=== PATIENT | male | born 1955 | race Caucasian/White ===

== ENCOUNTER 2017-03-17 07:50 | Day surgery (SDC) | payer BC ==
[2017-03-17] MEDS ORDERED: Lactated Ringers 1,000 ML IV SCH (08:50)
[2017-03-17] MEDS ORDERED: Glycopyrrolate 0.2 MG/ML 2 ML SDV IVPUSH ONE (09:15)
[2017-03-17] MEDS ORDERED: fentaNYL 100 MCG/2 ML SDV ONE (09:59)
[2017-03-17] MEDS ORDERED: Propofol 200 MG/20 ML SDV ONE (09:59)
[2017-03-17] MEDS ORDERED: Midazolam 1 MG/ML 2 ML SDV ONE (09:59)
[2017-03-17 11:47] VITALS: BP 125/71
--- NOTE | 2017-03-21 14:44 | OR ---
DATE OF PROCEDURE: 03/17/2017 PREOPERATIVE DIAGNOSIS: Weight regained status post Jessica-en-Y gastric bypass. POSTOPERATIVE DIAGNOSES: Weight regained status post Jessica-en-Y gastric bypass associated with extremely enlarged gastric pouch and gastrojejunostomy and associated gastrogastric fistula. OPERATIVE PROCEDURE: Upper GI endoscopy with biopsies of antrum for CLOtest. ANESTHESIA: IV sedation. INDICATION FOR PROCEDURE: This is a 61-year-old male presenting with a history of Jessica-en-Y gastric bypass done in 2000. His preoperative weight at that time was 514 pounds, it did get down to 270 pounds, but over the last years, he has had rapid weight regain, presently he is weighing 351 pounds. Plan is to proceed with upper GI endoscopy to investigate the gastric bypass anatomy. Potential risks including bleeding and perforation were discussed, and the patient wishes to proceed. DETAILS OF PROCEDURE: The patient was taken to the operating room and placed in a left lateral decubitus position. IV sedation was administered, after which the upper GI endoscope was passed orally through the length of the esophagus into the gastric pouch, from there through the gastrojejunostomy roughly 20 cm into the Jessica limb. Findings included normal esophagus and EG junction area. As one passed in the gastric pouch, this was noted to be strikingly large and was measured at 11 cm from the gastroesophageal junction mucosal line as a spherical configuration, so this was quite large, roughly the size of a softball. The gastrojejunostomy was also widely patent. Additionally, the patient had a gastrogastric fistula which was large enough to have the gastroscope passed through the fistula into the stomach. The remainder of the stomach and proximal duodenum were unremarkable. At this point, biopsies were obtained from the antrum and sent for CLOtest for H. pylori. Minimal bleeding from the biopsy sites was seen and the procedure then concluded. The patient was taken to the recovery room in satisfactory condition. The patient would appear to be a candidate for re-visional procedure, so the re-visional procedure would need to be an open approach, nonetheless the patient would likely do quite well. The revision would involve re-doing the upper area in terms of creating a much smaller gastric pouch eliminating gastric fistula and then recreating more distal Jessica-en-Y anatomy. [facility] will be contacted regarding prior authorization for this procedure. Julian Velazquez MD /[id number]
== END 2017-03-17 11:49 | disposition home or self-care (01) ==
LOC: JP.SDS 07:50
PROVIDERS: ATTEND Surgery
DX: K95.89 Other complications of other bariatric procedure (principal); R63.5 Abnormal weight gain; Z68.42 Body mass index [BMI] 45.0-49.9, adult; E03.9 Hypothyroidism, unspecified
CPT/HCPCS: 43239; 87081; J2250; J2704; J3010; J7120; J3490

== ENCOUNTER 2017-06-03 07:30 | Inpatient (IN) | payer BC ==
[~2017-06-03 07:30] MED LIST: Scopolamine 1.5 MG Transdermal Patch TOP SCH
[2017-06-03] MEDS ORDERED: Dextrose 5%-Lactated Ringers 1,000 ML IV SCH (08:30)
[2017-06-03] MEDS ORDERED: Gabapentin 300 MG Cap PO ONE (08:30)
[2017-06-03] MEDS ORDERED: Acetaminophen 500 MG Tab PO ONE (08:30)
[2017-06-03] MEDS ORDERED: Celecoxib 200 MG Cap PO ONE (08:30)
[2017-06-03] MEDS ORDERED: Scopolamine 1.5 MG Transdermal Patch TOP SCH (08:30)
[2017-06-03] MEDS ORDERED: Lidocaine 2% 100 MG/5 ML Syringe IVPUSH SCH (10:30)
[2017-06-03] MEDS ORDERED: Ketamine 500 MG/5 ML MDV IV SCH (10:30)
[2017-06-03] MEDS ORDERED: cefOXitin 2 GM in Sodium Chloride 0.9% 50 ML IV ONE (10:30)
[2017-06-03] MEDS ORDERED: Ropivacaine 60 ML, Dexamethasone 8 MG, EPINEPHrine 0.4 MG, Sodium Chloride 0.9% 17.6 ML NERVRT SCH ×4 (10:30)
[2017-06-03] MEDS ORDERED: Glycopyrrolate 0.2 MG/ML 5 ML MDV ONE (11:04)
[2017-06-03] MEDS ORDERED: Ondansetron 4 MG/2 ML SDV ONE (11:04)
[2017-06-03] MEDS ORDERED: Propofol 200 MG/20 ML SDV ONE (11:04)
[2017-06-03] MEDS ORDERED: Succinylcholine 200 MG/10 ML MDV ONE (11:04)
[2017-06-03] MEDS ORDERED: Neostigmine Methylsulfate 1 MG/ML 5 ML Syringe ONE (11:04)
[2017-06-03] MEDS ORDERED: Rocuronium 50 MG/5 ML Vial ONE ×2 (11:04→13:48)
[2017-06-03] MEDS ORDERED: Dexamethasone 4 MG/ML SDV ONE (11:04)
[2017-06-03] MEDS ORDERED: Lidocaine 0.4%/D5W 2 GM/500 ML BAG IV SCH (12:00)
[2017-06-03] MEDS: Meropenem 500 MG SDV ONE ×2 (13:58→15:03)
[2017-06-03] MEDS ORDERED: Lactated Ringers 1,000 ML ONE (14:14)
[2017-06-03] MEDS ORDERED: fentaNYL 100 MCG/2 ML SDV ONE (15:41)
[2017-06-03] MEDS ORDERED: hydrOXYzine HCl 100 MG/2 ML SDV IM ONE (16:03)
[2017-06-03] MEDS: hydrOXYzine HCl 100 MG/2 ML SDV IM PRN ×2 (17:21→21:32)
[2017-06-03] MEDS: Acetaminophen Soln 650 MG/20.3 ML UD Cup PO SCH ×2 (17:42→23:34)
[2017-06-03] MEDS: Lidocaine 0.4%/D5W 2 GM/500 ML BAG IV SCH (17:43)
[2017-06-03] MEDS: cefOXitin 2 GM in Sodium Chloride 0.9% 50 ML IV SCH ×2 (17:44→23:47)
[2017-06-03] MEDS: Heparin Sodium 5,000 Units/ML Vial SUBCUT SCH (17:47)
[2017-06-03] MEDS: SCOPOLAMINE PATCH CHECK TOP SCH (17:47)
[2017-06-03] MEDS ORDERED: diphenhydrAMINE 50 MG/ML SDV IVPUSH PRN (18:00)
[2017-06-03] MEDS ORDERED: Labetalol 20 MG/4 ML Syringe IVPUSH PRN (18:00)
[2017-06-03] MEDS ORDERED: Ondansetron 4 MG/2 ML SDV IVPUSH PRN (18:00)
[2017-06-03] MEDS ORDERED: MVI, Adult with Vitamin K 10 ML, Thiamine 200 MG, Chromium/Copper/Mang/Selen/Zn 1 ML in... IV SCH ×4 (18:00)
[2017-06-03] MEDS ORDERED: Metoclopramide 10 MG/2 ML SDV IVPUSH PRN (18:00)
[2017-06-03] MEDS ORDERED: Pantoprazole 40 MG Vial IVPUSH SCH (18:30)
[2017-06-03] MEDS: Gabapentin 250 MG/5 ML Solution ML 470 ML Bottle PO SCH (21:32)
[2017-06-03] MEDS: Dextrose 5%-Lactated Ringers 1,000 ML IV SCH (23:34)
[2017-06-04] MEDS: Dextrose 5%-Lactated Ringers 1,000 ML IV SCH (02:59)
[2017-06-04] MEDS: Heparin Sodium 5,000 Units/ML Vial SUBCUT SCH ×3 (02:59→17:30)
[2017-06-04] MEDS: cefOXitin 2 GM in Sodium Chloride 0.9% 50 ML IV SCH ×3 (05:47→17:30)
[2017-06-04] MEDS: Acetaminophen Soln 650 MG/20.3 ML UD Cup PO SCH ×4 (05:48→23:00)
[2017-06-04] MEDS: Lidocaine 0.4%/D5W 2 GM/500 ML BAG IV SCH (06:13)
[2017-06-04] MEDS: Gabapentin 250 MG/5 ML Solution ML 470 ML Bottle PO SCH ×3 (08:25→21:55)
[2017-06-04] MEDS: Celecoxib 200 MG Cap PO SCH (08:26)
[2017-06-04] MEDS: SCOPOLAMINE PATCH CHECK TOP SCH (08:26)
[2017-06-04] MEDS ORDERED: Dextrose 5%-Lactated Ringers 1,000 ML IV SCH (09:15)
[2017-06-04] MEDS: Oxybutynin 5 MG Tab PO SCH ×2 (09:40→21:55)
[2017-06-04] MEDS ORDERED: MVI, Adult with Vitamin K 10 ML, Thiamine 200 MG, Chromium/Copper/Mang/Selen/Zn 1 ML in... IV SCH ×4 (16:00)
[2017-06-04] MEDS: Lansoprazole 30 MG Orally Disintegrating Tab.CR PO SCH (16:11)
[2017-06-05] MEDS: Heparin Sodium 5,000 Units/ML Vial SUBCUT SCH ×2 (02:38→09:06)
[2017-06-05] MEDS: Acetaminophen Soln 650 MG/20.3 ML UD Cup PO SCH (05:39)
[2017-06-05 07:12] VITALS: BP 157/79
[2017-06-05] MEDS: Celecoxib 200 MG Cap PO SCH (07:20)
[2017-06-05] MEDS: Lansoprazole 30 MG Orally Disintegrating Tab.CR PO SCH (07:20)
[2017-06-05] MEDS: SCOPOLAMINE PATCH CHECK TOP SCH (08:02)
[2017-06-05] MEDS ORDERED: Cyanocobalamin (Vitamin B12) 1,000 MCG/ML SDV IM ONE (09:00)
[2017-06-05] MEDS: Oxybutynin 5 MG Tab PO SCH (09:06)
[2017-06-05] MEDS: Gabapentin 250 MG/5 ML Solution ML 470 ML Bottle PO SCH (09:10)
--- NOTE | 2017-06-05 09:43 | PN ---
DATE OF SERVICE: 06/04/2017 The patient has been afebrile with stable vital signs, status post revision of Jessica-en-Y gastric bypass yesterday. Vital signs and urine output have been satisfactory. The upper GI x-ray looked good. Pain control was satisfactory with the combination of the Tylenol, Celebrex, and gabapentin, and he did not need any postoperative narcotics. The plan will be to back down IV rate. He will go up to a step-2 diet today and restart his Ditropan XL. Julian Velazquez MD /[id number]
--- NOTE | 2017-06-06 09:16 | CR ---
UGI wo KUB HISTORY: Evaluate Jessica-en-Y bypass. COMPARISON: None FINDINGS: Contrast reaches the gastric remnant no extravasation in this region. Contrast is seen with in the more distal small bowel which is normal in caliber. No evidence for obstruction or other compl ication.
--- NOTE | 2017-06-06 13:48 | DISCH ---
FINAL DIAGNOSES: 1. Recurrent morbid obesity associated with an enlarged gastric pouch and gastrogastric fistula. 2. Recurrent incarcerated incisional hernia. 3. Status gastrostomy. 4. Overactive bladder. 5. Degenerative joint disease. OPERATIVE PROCEDURES: Done on 06/03/2017; exploratory laparotomy with lysis of adhesions and: 1. Revision of Jessica-en-Y gastric bypass, including closure of gastrogastric fistula. 2. Repair of recurrent incarcerated incisional hernia. 3. Takedown of gastrostomy. HOSPITAL COURSE: This is a 61-year-old presenting with longstanding morbid obesity. He originally underwent a Jessica-en-Y gastric bypass in [place], in 2000, and came down from 514 pounds to 275 pounds. He has now regained weight up to over the 350-pound range. Recent endoscopy showed a large gastric pouch, along with gastrogastric fistula, and the plan Is to proceed with an exploratory laparotomy with closure of the fistula and alteration of his limb lengths to facilitate more malabsorption. This was done on the date of admission. The overall pouch side was decreased somewhat, but given the limb reorganization, we were not overly aggressive in that regard. Gastrogastric fistula was closed and upper GI confirmed that to be no longer patent. His final limb lengths include a long biliopancreatic limb with a Jessica limb of only 150 cm and a common limb of 150 cm. This will give him some frequent loose bowel movements, but it should be fairly efficient in terms of getting additional weight off, although this will be a slower process than usually seen after gastric bypass. The patient was managed with an enhanced recovery program, receiving no narcotics postoperatively. He will be discharged home on Celebrex 200 mg daily x1 week and then daily p.r.n., #30; Tylenol 650 mg p.o. q.6 hours x1 week and then q.6 hours p.r.n.; and gabapentin 300 mg p.o. t.i.d. x1 week and then discontinue; continue his oxybutynin XL 10 mg a day; otherwise vitamins and other supplements will hold until the first appointment, which will be with Trupti Nuñez at [facility] on 06/13/2017 at 11:00 a.m. The LORIE drain that is in his incision, we will leave it in place, as it is still putting out a fair bit, and having this placed will likely prevent him from developing an open wound. He will be sent home on a step-3 gastric bypass diet, and should, by the time of appointment, be able to advance to a step-4 diet.
--- NOTE | 2017-06-06 14:15 | OR ---
DATE OF PROCEDURE: 06/03/2017 PREOPERATIVE DIAGNOSIS: Recurrent morbid obesity associated with an enlarged gastric pouch and gastrogastric fistula. POSTOPERATIVE DIAGNOSES: 1. Recurrent morbid obesity associated with an enlarged gastric pouch and gastrogastric fistula. 2. Recurrent incarcerated incisional hernia. 3. Status gastrostomy. OPERATIVE PROCEDURES: Exploratory laparotomy with lysis of adhesions and: 1. Revision of Jessica-en-Y gastric bypass including closure of gastrogastric fistula (03432). 2. Repair of recurrent incarcerated incisional hernia (54887). 3. Takedown of tube gastrostomy (00644). ANESTHESIA: General. PARENT EDUCATOR: Trupti Nuñez PA-C. INDICATION FOR PROCEDURE: This is a 61-year-old status post open Jessica-en-Y gastric bypass done in [place] in 2000. He got down to around 270 pounds but now, over the last 2 years or so, has had rapid weight regain up to over 350 pounds presently. Recent upper endoscopy showed an enlarged gastric pouch, gastrojejunostomy, and gastrogastric fistula. The plan will be to proceed with open revision of Jessica-en-Y gastric bypass, which would include closure of the gastrogastric fistula, and some tightening of the gastric pouch and gastrojejunostomy would be inherent in that closure. The patient's limb lengths will be altered, such that he has a long biliopancreatic limb with the common limb of 150 cm and a Jessica limb of 150 cm. This would likely result in significant weight loss overtime. It would be associated with some increased frequency of the bowel movements and occasionally a need to revise the limb lengths for problems with malnutrition. Potential risks per se, including bleeding, infection, injury to underlying viscera, leaks from various GI tract closures, problems with bowel obstruction overtime were all reviewed, and the patient wishes to proceed. DETAILS OF PROCEDURE: The patient was taken to the operating room and placed in a supine position. After general endotracheal anesthesia was induced, he was converted to a lithotomy position. Bilateral transversus abdominis plane blocks were then placed using continuous ultrasound and the usual formula of solution. The abdomen was then prepped and draped. The upper midline incision was then partially reused and carried down through the skin and subcutaneous tissue. On the upper end of the incision, the patient had a recurrent incisional hernia. This appeared at a place just above the previously placed mesh. This was reduced and the hernia contents excised. The patient had a thin layer of mesh in the abdominal wall, which was then divided as well. Upon entering the abdomen, lysis of adhesions was undertaken, such that the area of the gastric pouch and gastrojejunostomy were exposed. The area of the fistula was then dissected out, and this was identified as a point of continuous attachment between the upper end of the previous gastric pouch and the bypassed stomach. This was encircled and divided with a JAIME black load. An Nicola tube had been placed per Anesthesia orally across the gastric pouch, gastrojejunostomy, and into the Jessica limb to avoid overtightening. We intentionally did not tighten up the pouch too much as the limb length changes, if associated with marked increase in restriction, may make the patient overly prone to malnutrition. Once this phase was completed, the staple line was oversewn with a 2-0 Prolene stitch placed in seromuscular plane. Attention was then taken to the small bowel area. The Nicola tube had been passed into the Jessica limb below the point where it passed posterior to the colon, so this could easily be identified. There was quite a bit in the way of adhesions between the loops of small bowel, and these were eventually all dissected out. At that point, the length of the Nicola tube within the Jessica limb was measured per Anesthesia, and it was marked at the oral level and then pulled back from the point where it had been marked on the small bowel of the Jessica limb to the gastrojejunostomy. This was noted to be 19 cm. This then allowed calculation of the Jessica limb length, which turned out to be 150 cm. This was then divided flush with the jejunojejunostomy. Then, the ileocecal valve was identified, and the small bowel was then traced out 150 cm proximal to that as well, which would be the site for the formation of the new jejunojejunostomy, creating the patient a long biliopancreatic limb. At that level, a [id number] enteroenterostomy was accomplished with internal firing of the JAIME kearney load, common opening was closed transversely with the purple load, the angles anastomosed, and the mesenteric defect approximated with some 2-0 silk stitch along with fibrin sealant. At this point, no further problems were noted. It was noted that, during the course of the dissection, the patient had a gastrostomy in place. This was encircled with a Silastic-type band. The latter was removed and the gastrostomy was taken down by means of a JAIME purple load. At this point, no further problems were noted. The midline fascia was approximated with a #2 Vicryl stitch, after the previously placed mesh was initially closed off with an 0 Prolene stitch. The fascia overlying this was then closed with a #2 Vicryl stitch, and this included a repair of the area of the recurrent incisional hernia. A 10-[place] round Jt- Alcocer drain was then placed through stab wound inferior to the main incision and placed across the subcutaneous tissue, which was then closed with 2 layers of 3-0 Vicryl stitch deep and then melina for the skin. Dressing was applied. The patient was taken to the recovery room in a satisfactory condition. Physician circulation assistant, Trupti Nuñez, played an essential role in assisting in this case, helping to retract structures as needed, positioning the patient, as well as suturing and stapling as indicated. Her presence improved patient safety and decreased the operative time. Juilan eVlazquez MD /[id number]
== END 2017-06-05 11:26 | disposition home or self-care (01) | DRG 220 ==
LOC: EDSTATUS 07:30 → JP.SDS 07:52 → JP.MS 07:52 → JP.2SS 15:55
PROVIDERS: ADMIT Surgery; ATTEND Surgery
PROC: 0D160ZA Bypass Stomach to Jejunum, Open Approach (ICD-10-PCS; principal; 2017-06-03)
PROC: 0DQ60ZZ Repair Stomach, Open Approach (ICD-10-PCS; 2017-06-03)
PROC: 0WQF0ZZ Repair Abdominal Wall, Open Approach (ICD-10-PCS; 2017-06-03)
DX: K31.6 Fistula of stomach and duodenum (principal); K31.4 Gastric diverticulum; K43.2 Incisional hernia without obstruction or gangrene; E66.01 Morbid (severe) obesity due to excess calories; N32.81 Overactive bladder; M19.90 Unspecified osteoarthritis, unspecified site; Z43.1 Encounter for attention to gastrostomy; Z46.59 Encounter for fitting and adjustment of other gastrointestinal appliance and device
CPT/HCPCS: 36415; 74240; 74240-26; 80048; 83735; 84100; 88300; 88302; A9270-GY; C9113; J0171; J0330; J0694; J1100; J1644; J2001; J2185; J2405; J2704; J2710; J2795; J3010; J3410; J3411; J3420; J7030; J7042; J7050; J7120

== ENCOUNTER 2018-03-06 07:07 | Inpatient (IN) | payer BC ==
[~2018-03-06 07:07] MED LIST changes: +Bupivacaine 0.5%/EPINEPHrine 1:200,000 50 ML MDV ONE; +Meropenem 500 MG SDV ONE; -Scopolamine 1.5 MG Transdermal Patch TOP SCH
[2018-03-06] MEDS ORDERED: Gabapentin 300 MG Cap PO ONE (08:00)
[2018-03-06] MEDS ORDERED: Celecoxib 200 MG Cap PO ONE (08:00)
[2018-03-06] MEDS ORDERED: Acetaminophen 500 MG Tab PO ONE (08:00)
[2018-03-06] MEDS ORDERED: Dextrose 5%-Lactated Ringers 1,000 ML IV SCH (08:00)
[2018-03-06] MEDS ORDERED: Scopolamine 1.5 MG Transdermal Patch TOP SCH (08:00)
[2018-03-06] MEDS ORDERED: cefOXitin 2 GM in Sodium Chloride 0.9% 50 ML IV ONE (08:00)
[2018-03-06] MEDS ORDERED: Neostigmine Methylsulfate 1 MG/ML 5 ML Syringe ONE (08:07)
[2018-03-06] MEDS ORDERED: Rocuronium 50 MG/5 ML Vial ONE (08:07)
[2018-03-06] MEDS ORDERED: fentaNYL 250 MCG/5 ML SDV ONE (08:07)
[2018-03-06] MEDS ORDERED: Dexamethasone 4 MG/ML SDV ONE (08:07)
[2018-03-06] MEDS ORDERED: Propofol 200 MG/20 ML SDV ONE (08:07)
[2018-03-06] MEDS ORDERED: Succinylcholine 200 MG/10 ML MDV ONE (08:07)
[2018-03-06] MEDS ORDERED: Ondansetron 4 MG/2 ML SDV ONE (08:07)
[2018-03-06] MEDS ORDERED: Glycopyrrolate 0.2 MG/ML 5 ML MDV ONE (08:07)
[2018-03-06] MEDS ORDERED: Lidocaine 0.4%/D5W 2 GM/500 ML BAG IV SCH ×2 (09:00)
[2018-03-06] MEDS ORDERED: Lidocaine 2% 100 MG/5 ML Syringe IVPUSH ONE (09:00)
[2018-03-06] MEDS ORDERED: Ketamine 500 MG/5 ML MDV IV SCH (09:00)
[2018-03-06] MEDS ORDERED: Ropivacaine 60 ML, Dexamethasone 8 MG, EPINEPHrine 0.4 MG, Sodium Chloride 0.9% 17.6 ML NERVRT SCH ×4 (09:00)
[2018-03-06] MEDS ORDERED: Linezolid 200 MG/100 ML Bag IV ONE (10:30)
[2018-03-06] MEDS ORDERED: HYDROmorphone/Normal Saline 15 MG/30 ML PCA IV PRN (10:53)
[2018-03-06] MEDS ORDERED: Naloxone 0.4 MG/ML SDV IV PRN (10:55)
[2018-03-06] MEDS ORDERED: Linezolid 200 MG/100 ML Bag IRR ONE (10:59)
[2018-03-06] MEDS ORDERED: Cyclobenzaprine 10 MG Tab PO PRN (12:41)
[2018-03-06] MEDS ORDERED: hydrOXYzine HCl 100 MG/2 ML SDV IM PRN (12:41)
[2018-03-06] MEDS ORDERED: Ondansetron 4 MG/2 ML SDV IV PRN (12:41)
[2018-03-06] MEDS ORDERED: Pantoprazole 40 MG Delayed-Release Granules 1 Packet PO SCH (14:00)
[2018-03-06] MEDS: Pantoprazole 40 MG Vial IV SCH (14:46)
[2018-03-06] MEDS: Linezolid 600 MG in Premix Bag 1 BAG IV SCH (14:46)
[2018-03-06] MEDS: Acetaminophen 500 MG Tab PO SCH ×2 (15:43→21:15)
[2018-03-06] MEDS: Dextrose 5%-Lactated Ringers 1,000 ML IV SCH (19:13)
[2018-03-06] MEDS: Oxybutynin 5 MG Tab PO SCH (21:15)
[2018-03-07] MEDS: Dextrose 5%-Lactated Ringers 1,000 ML IV SCH ×3 (01:04→14:57)
[2018-03-07] MEDS: Linezolid 600 MG in Premix Bag 1 BAG IV SCH ×2 (02:14→14:57)
[2018-03-07] MEDS: Acetaminophen 500 MG Tab PO SCH ×4 (03:59→21:40)
[2018-03-07] MEDS: Oxybutynin 5 MG Tab PO SCH ×2 (09:50→21:40)
[2018-03-07] MEDS: Furosemide 40 MG Tab PO SCH (09:51)
[2018-03-07] MEDS: SCOPOLAMINE PATCH CHECK TOP SCH (09:51)
--- NOTE | 2018-03-07 11:31 | PN ---
DATE OF SERVICE: 03/07/2018 The patient has been afebrile with stable vital signs. No major problems were noted. Overnight, he was fairly hungry. He is a gastric bypass patient, so we do not need to worry about the gastric ileus issue and we will start him on a step-3 diet today, otherwise back down on the IV rate and get the Reynolds catheter out. He is due for a delayed primary closure on . The culture and sensitivities are still pending. Given this, we will continue giving Zyvox for the Gram stain showing gram-positive cocci and simplify the antibiotic regimen once the sensitivities become available. Julian Velazquez MD /[id number]
[2018-03-07] MEDS: Pantoprazole 40 MG Vial IV SCH (13:45)
[2018-03-08] MEDS: Dextrose 5%-Lactated Ringers 1,000 ML IV SCH ×3 (01:28→23:20)
[2018-03-08] MEDS: Acetaminophen 500 MG Tab PO SCH ×4 (03:20→21:09)
[2018-03-08] MEDS: Linezolid 600 MG in Premix Bag 1 BAG IV SCH ×2 (03:21→14:42)
--- NOTE | 2018-03-08 09:27 | PN ---
DATE OF SERVICE: 03/08/2018 SUBJECTIVE: Denton is postop day #2. He states his pain is controlled. He has been up ambulating. Vital signs stable. Oral intake adequate at 2440 and urine output 1150. He has eaten 100% of his breakfast, lunch, and dinner. REVIEW OF SYSTEMS: Remainder of review of systems negative for any pertinent positives and negatives. OBJECTIVE: GENERAL: Denton De La O is a 62-year-old male, alert and orientated, sitting up in a chair. VITAL SIGNS: TPR is 97.6, 86, 16. Blood pressure is 109/64. HEENT: Negative. NECK: Supple. HEART: Regular rate and rhythm. LUNGS: Clear. ABDOMEN: Dressings dry and intact. Abdominal binder is on. EXTREMITIES: With trace peripheral edema. ASSESSMENT: Exploratory laparotomy with repair of recurrent incarcerated incisional hernia, drainage of extensive intra-abdominal abscesses x2, debridement of abdominal wall x2, removal of intra-abdominal and abdominal wall mesh, mobilization of omentum, for extensive intra-abdominal adhesions, recurrent incarcerated incisional hernia with 3 focal pockets of intra-abdominal and abdominal wall abscess, infected abdominal wall and intra-abdominal mesh, chronic infection with stitch abscess. Date of surgery, 03/06/2018. Surgeon; Julian Velazquez M.D. PLAN: 1. Schedule and have consent signed for delayed primary closure, IV local sedation with TAP block on , 03/09/2018; Julian Velazquez M.D. N.p.o. after midnight. 2. Good pulmonary toilet. 3. We will evaluate p.r.n. or in the a.m. Trupti Nuñez PA-C /[id number]
[2018-03-08] MEDS: Furosemide 40 MG Tab PO SCH (09:29)
[2018-03-08] MEDS: Oxybutynin 5 MG Tab PO SCH ×2 (09:29→21:09)
[2018-03-08] MEDS: SCOPOLAMINE PATCH CHECK TOP SCH (09:31)
[2018-03-08] MEDS: Pantoprazole 40 MG Vial IV SCH (14:38)
[2018-03-09] MEDS: Linezolid 600 MG in Premix Bag 1 BAG IV SCH (04:28)
[2018-03-09] MEDS: Acetaminophen 500 MG Tab PO SCH ×4 (05:21→21:22)
[2018-03-09] MEDS ORDERED: Meropenem 500 MG SDV ONE (06:39)
[2018-03-09] MEDS ORDERED: Bupivacaine 0.5%/EPINEPHrine 1:200,000 50 ML MDV ONE (06:39)
[2018-03-09] MEDS ORDERED: Midazolam 1 MG/ML 2 ML SDV ONE (06:51)
[2018-03-09] MEDS ORDERED: Propofol 200 MG/20 ML SDV ONE ×2 (06:51→07:21)
[2018-03-09] MEDS ORDERED: fentaNYL 100 MCG/2 ML SDV ONE (06:51)
[2018-03-09] MEDS ORDERED: Non-Formulary Medication 1 Each SCH (07:15)
[2018-03-09] MEDS ORDERED: Ropivacaine 60 ML, Dexamethasone 8 MG, EPINEPHrine 0.4 MG, Sodium Chloride 0.9% 17.6 ML NERVRT SCH ×4 (07:15)
[2018-03-09] MEDS ORDERED: Linezolid 200 MG/100 ML Bag IRR ONE (07:25)
[2018-03-09] MEDS ORDERED: Lactated Ringers 1,000 ML ONE ×2 (07:39)
--- NOTE | 2018-03-09 08:31 | PN ---
DATE OF SERVICE: 03/09/2018 SUBJECTIVE: Aldo is n.p.o. for delayed primary closure. Magnesium was 1.6 this morning and he did have 1 small bowel movement. REVIEW OF SYSTEMS: Remainder of review of systems negative for any pertinent positives or negatives. His wound abscess grew out Staphylococcus Aureus. OBJECTIVE: GENERAL: Aldo De La O is a 62-year-old male. He is sitting up in the chair. Alert and orientated. VITAL SIGNS: TPR 96.9, 63, 16. Blood pressure 122/51. HEENT: Negative. NECK: Supple. HEART: Regular rate and rhythm. LUNGS: Clear. ABDOMEN: Dressings dry and intact. Abdominal binder is on. EXTREMITIES: Without peripheral edema. ASSESSMENT: Exploratory laparotomy with repair of recurrent incarcerated incisional hernia, drainage of extensive intraabdominal abscess x2, debridement of abdominal wall x2, removal of intraabdominal and abdominal wall mesh, mobilization of omentum for extensive intraabdominal adhesions, recurrent incarcerated incisional hernia with 3 focal pockets of intraabdominal and abdominal wall abscess, infected abdominal wall and intraabdominal wall mesh, chronic infection with stitch abscess. Date of surgery 03/06/2018. Surgeon, Julian Velazquez MD. PLAN: 1. Rx magnesium 2 g q.6 hours IV x72 hours. 2. Cipro 500 mg b.i.d. 3. He will need to continue this for 1 month. 4. Other orders to be written post delayed primary closure. Trupti Nuñez PA-C /[id number]
[2018-03-09] MEDS ORDERED: Sodium Chloride 0.9% 10 ML Syringe IV PRN (09:28)
[2018-03-09] MEDS: HYDROmorphone 2 MG Tab PO PRN ×2 (10:23→20:04)
[2018-03-09] MEDS: Furosemide 40 MG Tab PO SCH (10:24)
[2018-03-09] MEDS: Ciprofloxacin 500 MG Tab PO SCH ×2 (10:24→21:22)
[2018-03-09] MEDS: Oxybutynin 5 MG Tab PO SCH ×2 (10:25→21:22)
[2018-03-09] MEDS: Magnesium Sulfate/Water 2 GM in Premix Bag 1 BAG IV SCH ×3 (10:26→21:22)
[2018-03-09] MEDS: Pantoprazole 40 MG Vial IV SCH (14:35)
--- NOTE | 2018-03-10 01:07 | PN ---
DATE OF SERVICE: 03/09/2018 The patient has been afebrile with stable vital signs. He underwent a delayed primary closure today of his incision. We will switch him over to oral pain medication today, and let him get in the shower. His magnesium is marginally low and will be supplemented. His cultures grew out a Staph aureus, which is sensitive to everything on the panel including Cipro. We will start him on oral Cipro today to make sure prior to likely discharge on Tuesday. He will be allowed to get in the shower today. He will resume a step-4 diet. uJlian Velazquez MD /[id number]
--- NOTE | 2018-03-10 01:07 | OR ---
DATE OF PROCEDURE: 03/09/2018 PREOPERATIVE DIAGNOSIS: Open abdominal incisions. POSTOPERATIVE DIAGNOSIS: Open abdominal incisions. OPERATIVE PROCEDURE: Delayed primary closure of abdominal incisions. ANESTHESIA: IV block plus sedation. INDICATIONS FOR PROCEDURE: The patient is three days status post an open incision, with the incision having been left open due to purulence in the wound at the time of the procedure. The plan is to treat with a delayed primary closure. Potential risks including bleeding and infection were reviewed, and the patient wishes to proceed. DETAILS OF PROCEDURE: The patient was taken to the operating room and placed in the supine position. IV sedation was administered, after which the operative dressing was taken down and incisions were found to be clean. Bilateral transversus abdominis plane blocks were then placed with continuous ultrasound guidance, and the abdomen was prepped and draped. The main incision was along midline incision. This was closed with 2 layers of 3-0 and 4-0 Vicryl stitch deep and melina for the skin. The small umbilectomy incision was also opened, and this was closed with a transverse orientation with 2 layers of 4-0 Vicryl stitch deep and then melina for the skin as well. The patient was taken to the recovery room in a satisfactory condition. There were no evident complications. Julian Velazquez MD /[id number]
[2018-03-10] MEDS: Magnesium Sulfate/Water 2 GM in Premix Bag 1 BAG IV SCH ×2 (03:51→09:21)
[2018-03-10] MEDS: Acetaminophen 500 MG Tab PO SCH ×2 (03:52→09:23)
[2018-03-10] MEDS ORDERED: Pantoprazole 40 MG Tab.CR PO SCH (07:30)
[2018-03-10 08:12] VITALS: BP 119/56
[2018-03-10] MEDS: Ciprofloxacin 500 MG Tab PO SCH (08:23)
[2018-03-10] MEDS: Furosemide 40 MG Tab PO SCH (08:23)
[2018-03-10] MEDS: Oxybutynin 5 MG Tab PO SCH (08:23)
--- NOTE | 2018-03-10 10:29 | DISCH ---
ADMISSION DIAGNOSES: 1. Recurrent incisional hernia. 2. Status post Jessica-en-Y gastric bypass surgery. 3. Unspecified surgical malabsorption. 4. B12 deficiency. 5. Vitamin B complex deficiency. 6. Morbid obesity. 7. Vitamin A deficiency. 8. Copper deficiency. DISCHARGE DIAGNOSES: 1. Exploratory laparotomy with repair of recurrent incarcerated incisional hernia, drainage of extensive intraabdominal abscess x2, debridement of abdominal wall x2, removal of intraabdominal and abdominal wall mesh, mobilization of omentum for extensive intraabdominal adhesions, recurrent incarcerated incisional hernia with 3 focal pockets of intraabdominal and abdominal wall abscesses, infected abdominal wall and intraabdominal mesh, chronic infection and stitch abscess. Date of surgery, 03/06/2018. Surgeon, Julian Velazquez MD. 2. Delayed primary closure on 03/09/2018. HISTORY: Aldo De La O is a 62-year-old male with recurrent incarcerated incisional hernia. After preoperative evaluation and discussion of possible risks and possible complications, he wished to proceed with surgical procedure. HOSPITAL COURSE: Aldo had his surgery on 03/06/2018. He had no operative complications. The incision was left open due to 3 infectious pockets. His pain was well managed. His activity was good. He had a delayed primary closure on 03/09/2018. He tolerated that procedure well, and he was able to be discharged to home on 03/10/2018. Microbiology on the abdominal abscess showed staphylococcus aureus, which is sensitive to Cipro. PHYSICAL EXAMINATION: GENERAL: Aldo De La O is a 62-year-old male. VITAL SIGNS: Height is 5 feet 10 inches. Weight is 297 pounds. TPR is 97.6, 77, 18, and blood pressure 119/56. HEENT: Negative. NECK: Supple. HEART: Regular rate and rhythm. LUNGS: Clear. ABDOMEN: [place] intact. LORIE drain intact. Abdominal binder is on. EXTREMITIES: Without peripheral edema. DISPOSITION: Discharged to home. CONDITION: Stable and improving. FOLLOWUP APPOINTMENT: On 03/21/2018 at [facility]. His appointment time was already set up. DISCHARGE MEDICATIONS: Home Medications: 1. Cipro 500 mg b.i.d., #60. He is to be on this for 30 days. 2. Dilaudid 2 mg 1 to 2 every 4 hours p.r.n. pain, #40. 3. Zofran ODT 4 mg q.6 hours p.r.n. nausea. He is to resume his home medications of; 1. Vitamin supplements. 2. Lasix 40 mg daily. 3. Ditropan 10 mg oral daily. DISCHARGE DIET: Usual diet as tolerated. Drink 8 to 10 glasses of water a day. ACTIVITY: No lifting greater than 10 pounds for 6 weeks[address] Driving, do not drive while on pain medication. May shower. DISCHARGE INSTRUCTIONS: Notify provider if any fever, pain, increase swelling, redness, drainage, nausea, or vomiting. Keep site clean and dry. Wear abdominal binder for 6 weeks and then while working. SPECIAL INSTRUCTIONS: Strip, empty, drain, measure, and record LORIE drain 4 times daily and bring record of drainage to clinic appointment. Use incentive spirometer 10 times every hour while awake for one week.
--- NOTE | 2018-03-21 09:18 | OR ---
DATE OF PROCEDURE: 03/06/2018 PREOPERATIVE DIAGNOSIS: Recurrent incarcerated incisional hernia. POSTOPERATIVE DIAGNOSES: 1. Recurrent incarcerated incisional hernia with focal intraabdominal abscesses, infected abdominal wall and anterior abdominal mesh and focal abdominal wall necrosis. 2. Devascularized umbilicus, status post abdominal wall debridement. OPERATIVE PROCEDURES: Exploratory laparotomy with: 1. Repair of recurrent incarcerated incisional hernia (36696). 2. Drainage and excision of the intraabdominal abscesses (56110). 3. Debridement of abdominal wall and necrotizing infection (29672). 4. Removal of infected intraabdominal and abdominal wall mesh (73330). 5. Umbilectomy (08232). 6. Mobilization of omentum to limit recurrent adhesion formation between the pelvic and abdominal wall and underlying viscera (61358). ANESTHESIA: General. INDICATION FOR PROCEDURE: The patient presents with a recurrent incisional hernia, which is presently reducible. This has been associated with previous mesh repair done in [place], [place]. The patient has some drainage from a sinus tract in the lower aspect of the incision suspicious for some ongoing infection. Plan is to proceed with repair of the hernia with mesh. However, if an active infection is identified, the patient was aware that the mesh would not be reused and the procedure may be somewhat complex in terms of removal of preexisting mesh, abdominal wall debridement and such. Potential risks of the procedure including bleeding, infection, injury to underlying viscera, and problems with the hernia recurring over time were all reviewed, and the patient wishes to proceed. DETAILS OF PROCEDURE: The patient was taken to the operating room and placed in a supine position. After general endotracheal anesthesia was induced, a Reynolds catheter was inserted and the abdomen prepped and draped. The previous midline incision was then reused, taking some of the widened cutaneous scar and continued down to the lower aspect of the incision where it was satisfactorily identified. The excision continued down along that area. There was a large phlegmon of tissue present. This was initially excised containing some stitches, these being some nonabsorbable Prolene stitches. Some obvious purulence was coming from that area and cultures were obtained. As I went further, debrided the abdominal wall upward, a combined intraabdominal and abdominal abscess was encountered. This was drained and some of the additional abdominal wall necrotizing infection was treated around it. This included removal of a substantial part of infected intraabdominal and abdominal wall mesh. Once this was all debrided, the remaining abdominal tissues appeared to be satisfactorily clear of the active infection. During the course of the mobilization and excision of the abdominal wall, the umbilicus was undermined and the umbilical skin was devascularized, thus umbilectomy was undertaken at this point as well. The abdomen was then irrigated with a Zyvox-containing saline solution with the Gram stain at this point showing gram-positive cocci, likely a Staph subspecies, which would be sensitive to the Zyvox. The midline fascia was then approximated with a #2 Vicryl stitch. The skin and subcutaneous tissue were felt to be at very high risk for wound infection if primary closure was undertaken and given this, the skin and subcutaneous tissue were packed open with iodoform gauze and a dressing applied. The patient was taken to the recovery room in satisfactory condition. Julian Velazquez MD /[id number]
== END 2018-03-10 12:12 | disposition home or self-care (01) | DRG 228 ==
LOC: JP.SDSSCHI 07:07 → JP.SDS 07:07 → EDSTATUS 07:15 → JP.2SS 11:45
PROVIDERS: ADMIT Surgery; ATTEND Surgery
PROC: 0WQF0ZZ Repair Abdominal Wall, Open Approach (ICD-10-PCS; principal; 2018-03-09)
DX: K43.0 Incisional hernia with obstruction, without gangrene (principal); K65.1 Peritoneal abscess; B95.61 Methicillin susceptible Staphylococcus aureus infection as the cause of diseases classified elsewhere; T81.4XXA Infection following a procedure, initial encounter; K91.2 Postsurgical malabsorption, not elsewhere classified; E53.8 Deficiency of other specified B group vitamins; E83.42 Hypomagnesemia; E50.9 Vitamin A deficiency, unspecified; E53.9 Vitamin B deficiency, unspecified; E61.0 Copper deficiency; D64.9 Anemia, unspecified; Z87.11 Personal history of peptic ulcer disease; Z98.84 Bariatric surgery status; Z98.0 Intestinal bypass and anastomosis status; Z87.891 Personal history of nicotine dependence; F10.21 Alcohol dependence, in remission; Z47.1 Aftercare following joint replacement surgery
CPT/HCPCS: 36415; 80053; 83735; 84100; 85027; 87070; 87075; 87077; 87186; 87205; 88302; 88304; 94762; A9270-GY; C9113; J0171; J0330; J0694; J1100; J1170; J2001; J2020; J2185; J2250; J2405; J2704; J2710; J2795; J3010; J3475; J3490; J7030; J7042; J7050; J7120